=== PATIENT | female | born 1965 | race Caucasian/White ===

== ENCOUNTER 2018-11-09 20:30 | Outpatient (CLI) | payer OTHER | END 2018-11-09 20:31 | disposition home or self-care (01) | LOC: SLEEPLAB 20:30 | PROVIDERS: ATTEND Family Medicine | DX: G47.33 Obstructive sleep apnea (adult) (pediatric) (principal); J98.9 Respiratory disorder, unspecified; J44.9 Chronic obstructive pulmonary disease, unspecified; F31.9 Bipolar disorder, unspecified; G31.84 Mild cognitive impairment of uncertain or unknown etiology; E66.9 Obesity, unspecified; R40.0 Somnolence; R53.83 Other fatigue; Z68.43 Body mass index [BMI] 50.0-59.9, adult; R09.02 Hypoxemia | CPT/HCPCS: 95811 ==

== ENCOUNTER 2020-01-11 13:10 | Outpatient (CLI) | payer OTHER ==
[~2020-01-11 13:10] MED LIST: Magnevist 469MG/ML 20 ML VIAL ONE
--- NOTE | 2020-01-11 14:36 | MRI ---
MRI brain without and with gadolinium contrast HISTORY: Altered mental status. Transient alteration of awareness. FINDINGS: There is no evidence of acute intracranial hemorrhage or infarct. The ventricles appear nor mal in size, shape and position. Mild chronic ischemic small vessel disease is apparent within the periventricular white matter of eac h cerebral hemisphere. There is no mass effect, shift of midline structures, or abnormal areas of contrast enhancement. IMPRESSION : Very mild chronic ischemic small vessel disease. No acute intracranial abnormalities are demonstrated .
== END 2020-01-11 13:11 | disposition home or self-care (01) ==
LOC: TBSIIMAG 13:10
PROVIDERS: ATTEND Nurse Practitioner Acute Care
DX: R40.4 Transient alteration of awareness (principal); I67.82 Cerebral ischemia
CPT/HCPCS: 70553